=== PATIENT | female | born 1955 | race American Indian/Alaskan Native ===

== ENCOUNTER 2017-09-23 04:58 | Emergency (ER) | payer OTHER ==
--- NOTE | 2017-09-23 09:51 | Emergency Department Report ---
Blank Doc - Documentation Documentation: 62-year-old male with past medical history subdural hematoma, recent subdural hematoma evacuation at [facility] in June and comes in complaining of headaches and seizures for 2 weeks. Patient complains of headache on and off for 2 weeks, 6/10, nonradiating denies numbness tingling. Blurry vision at times. Patient states she's not been taking any of his blood pressure medication or seizure medications because he doesn't have money to buy them. Patient denies any nausea vomiting chest pain shortness of breath. NIH score:0 P: 1. bloodwork, CT scan and pt to go to ER side and admission
[2017-09-23 10:09] LABS: Hematocrit 38.6 % (30.3-42.9); Hemoglobin 13.3 gm/dl (10.1-14.3); Mean Corpuscular HGB Conc 34 % (30-34); Mean Corpuscular Hemoglobin 34 pg (28-32); Mean Corpuscular Volume 97 fl (79-97); Platelet Count 154 K/mm3 (140-440); Red Blood Count 3.97 M/mm3 (3.65-5.03); Red Cell Distribution Width 12.4 % (13.2-15.2)
[2017-09-23 10:19] LABS: INR 0.87 (0.87-1.13)
[2017-09-23 10:20] LABS: Partial Thromboplastin Time 25.9 Sec. (24.2-36.6)
[2017-09-23 10:24] LABS: BUN/Creatinine Ratio 15; Blood Urea Nitrogen 15 mg/dL (7-17); Calcium 9.4 mg/dL (8.4-10.2)
[2017-09-23 10:25] LABS: Alanine Aminotransferase 5 units/L (7-56); Albumin 4.2 g/dL (3.9-5); Hemolysis Index 8
[2017-09-23 10:49] LABS: Erythrocyte Sedimentation Rate 2 mm/Hr (0-20)
[2017-09-23] MEDS ORDERED: ROXICODONE PO ONE (10:56)
--- NOTE | 2017-09-23 11:22 | Emergency Department Report ---
ED General Adult HPI - General Chief complaint: Headache Stated complaint: BRAIN SURGERY, HEAD HURTS Time Seen by Provider: 09/23/17 09:39 Source: patient Mode of arrival: Ambulatory Limitations: No Limitations - History of Present Illness Initial comments: Patient complains of chronic headache ( "head pain") which has been ongoing since June 2017 after he had a brain surgery. He said the "head pain" is only controlled by taking Oxycodone. He has run out of his oxycodone and he is looking for a refill of oxycodone. He also has a history of seizure which is controlled by taking Depakote and Gabapentin. Patient also stated he ran out of both his Depakote and Gabapentin and he is requesting a refill. He normally goes to [facility] for his medical care since he has no primary care provider. He said he does not have the transportation to go to [place] that is why he came to [facility] emergency room. Patient is demanding to have oxycodone for his head pain. He also said he has had blurry vision on and off for the past 3 months. -: Gradual, month(s) (4) Location: head Radiation: non-radiation Severity scale (0 -10): 5 Quality: aching Consistency: intermittent Improves with: medication (Oxycodone) Worsens with: none Associated Symptoms: denies other symptoms Treatments Prior to Arrival: none - Related Data Home Medications Medication Instructions Recorded Confirmed Last Taken Divalproex Sodium [Depakote] 500 mg PO BID 09/23/17 09/23/17 09/23/17 Ibuprofen 800 mg PO TID 09/23/17 09/23/17 Unknown Meloxicam 1 tab PO DAILY 09/23/17 09/23/17 Unknown amLODIPine [Norvasc] 10 mg PO DAILY 09/23/17 09/23/17 Unknown Previous Rx's Medication Instructions Recorded Last Taken Type Amlodipine Besylate [Norvasc] 10 mg PO DAILY #30 tablet 09/23/17 Unknown Rx Butalb/Acetaminophen/Caffeine 1 cap PO Q8HR PRN #20 cap 09/23/17 Unknown Rx [Fioricet 50-300-40 mg CAP] Divalproex Sodium [Depakote] 500 mg PO BID #60 tablet. 09/23/17 Unknown Rx Allergies Allergy/AdvReac Type Severity Reaction Status Date / Time No Known Allergies Allergy Unverified 09/23/17 05:14 ED Review of Systems ROS: Stated complaint: BRAIN SURGERY, HEAD HURTS Other details as noted in HPI Comment: All other systems reviewed and negative Constitutional: denies: chills, fever Eyes: vision change. denies: eye pain, eye discharge ENT: denies: ear pain Respiratory: denies: cough, shortness of breath, SOB with exertion, SOB at rest Cardiovascular: denies: chest pain, palpitations, dyspnea on exertion Endocrine: no symptoms reported Gastrointestinal: denies: abdominal pain, nausea, vomiting, diarrhea Genitourinary: denies: urgency, frequency Musculoskeletal: denies: back pain, joint swelling, arthralgia Skin: denies: rash, change in color Neurological: headache. denies: weakness, numbness, paresthesias, confusion, abnormal gait, vertigo Psychiatric: denies: anxiety, depression Hematological/Lymphatic: denies: easy bleeding, easy bruising ED Past Medical Hx - Past Medical History Previous Medical History?: Yes Hx Hypertension: Yes - Surgical History Past Surgical History?: Yes Additional Surgical History: brain sx 06/2017, "for clot in my brain" - Social History Smoking Status: Current Every Day Smoker Substance Use Type: Alcohol - Medications Home Medications: Home Medications Medication Instructions Recorded Confirmed Last Taken Type Amlodipine Besylate [Norvasc] 10 mg PO DAILY #30 tablet 09/23/17 Unknown Rx Butalb/Acetaminophen/Caffeine 1 cap PO Q8HR PRN #20 cap 09/23/17 Unknown Rx [Fioricet 50-300-40 mg CAP] Divalproex Sodium [Depakote] 500 mg PO BID 09/23/17 09/23/17 09/23/17 History Divalproex Sodium [Depakote] 500 mg PO BID #60 tablet. 09/23/17 Unknown Rx Ibuprofen 800 mg PO TID 09/23/17 09/23/17 Unknown History Meloxicam 1 tab PO DAILY 09/23/17 09/23/17 Unknown History amLODIPine [Norvasc] 10 mg PO DAILY 09/23/17 09/23/17 Unknown History ED Physical Exam - General Limitations: No Limitations General appearance: alert, in no apparent distress - Head Head exam: Present: atraumatic, normocephalic, normal inspection - Eye Eye exam: Present: normal appearance, PERRL, EOMI, other (Visual Acuity: R=20/70 , L=20/70, Both eyes=20/70.) Pupils: Present: normal accommodation - ENT ENT exam: Present: normal orophraynx, mucous membranes moist - Neck Neck exam: Present: normal inspection. Absent: tenderness, full ROM - Respiratory Respiratory exam: Present: normal lung sounds bilaterally. Absent: wheezes - Cardiovascular Cardiovascular Exam: Present: regular rate, normal heart sounds - GI/Abdominal GI/Abdominal exam: Present: soft, distended, normal bowel sounds. Absent: tenderness, guarding - Extremities Exam Extremities exam: Present: normal inspection, full ROM, normal capillary refill - Back Exam Back exam: Present: normal inspection, full ROM - Neurological Exam Neurological exam: Present: alert, oriented X3, CN II-XII intact. Absent: motor sensory deficit - Psychiatric Psychiatric exam: Present: normal affect - Skin Skin exam: Present: warm, dry, intact, normal color. Absent: rash ED Course Vital Signs 09/23/17 09/23/17 09/23/17 05:14 11:09 12:30 Temperature 98.7 F 98.1 F Pulse Rate 88 82 Respiratory 18 20 16 Rate Blood Pressure 144/99 Blood Pressure 173/104 [Right] O2 Sat by Pulse 100 100 Oximetry 09/23/17 14:13 Temperature 97.8 F Pulse Rate 83 Respiratory 18 Rate Blood Pressure Blood Pressure 146/105 [Right] O2 Sat by Pulse 100 Oximetry - Reevaluation(s) Reevaluation #1: 09/23/17 13:35 On reevaluation patient said his headache has resolved and he wants to go home. I will go ahead and discharge him home with neurology follow up. ED Medical Decision Making - Lab Data Result diagrams: 09/23/17 09:55 09/23/17 09:55 - Radiology Data Radiology results: report reviewed, image reviewed The radiologist field service consultant Dr. Marrufo called me and give me a full report of the patient has CT scan without contrast. He said the head CT showed chronic left basal ganglia lacunar infarct. No acute intracranial findings. - Medical Decision Making Chronic headache. History of seizure disorder. Critical care attestation.: If time is entered above; I have spent that time in minutes in the direct care of this critically ill patient, excluding procedure time. ED Disposition Clinical Impression: Seizure disorder Chronic headaches Qualifiers: Headache type: unspecified Intractability: not intractable Qualified Code(s): R51 - Headache Migraine headache Qualifiers: Migraine type: unspecified Status migrainosus presence: without status migrainosus Intractability: not intractable Qualified Code(s): G43.909 - Migraine, unspecified, not intractable, without status migrainosus Disposition: TO HOME OR SELFCARE Is pt being admited?: No Does the pt Need Aspirin: No Condition: Stable Instructions: Migraine Headache (ED), Recurrent Seizures Adult (ED) Additional Instructions: Please follow up with the neurologist Dr Her. Return to the emergency room if her condition worsens. Prescriptions: Amlodipine Besylate [Norvasc] 10 mg PO DAILY #30 tablet Butalb/Acetaminophen/Caffeine [Fioricet 50-300-40 mg CAP] 1 cap PO Q8HR PRN #20 cap PRN Reason: Headache Divalproex Sodium [Depakote] 500 mg PO BID #60 tablet. Referrals: PRIMARY CAREMD [Primary Care Provider] - 3-5 Days DAWSON HER MD [Staff Physician] - 3-5 Days Time of Disposition: 13:39
[2017-09-23 12:03] LABS: Platelet Estimate Consistent w Auto; RBC Morphology Normal; Total Cells Counted 100
[2017-09-23] MEDS ORDERED: NEURONTIN PO ONE (12:06)
[2017-09-23 14:15] VITALS: BP 146/105
--- NOTE | 2017-09-27 12:56 | Cat Scan Report ---
CT HEAD WITHOUT CONTRAST: HISTORY: Headache. TECHNIQUE: Sequential 2.5mm CT images. COMPARISON: none. FINDINGS: Cerebral Parenchyma: Minimal chronic periventricular white matter changes are identified. Chronic 1 cm infarct in the left anterior basal ganglia. The remaining brain parenchyma is within normal limits. Cerebellum: Within normal limits. Brainstem: Within normal limits. Ventricles: Normal. Sella: Normal. Extra-axial spaces: Normal. Basal Cisterns: Normal. Intracranial Hemorrhage: None. Midline Shift: None. Calvarium: Left craniotomy changes are identified. Sinuses: Normal. Mastoid Air Cells: Normal. Visualized Orbits: Normal. IMPRESSION: No acute intracranial process identified. Previous left frontal craniotomy changes. Chronic 1 cm infarct in the anterior left basal ganglia.
== END 2017-09-23 14:16 | disposition home or self-care (01) ==
LOC: ED 04:58
DX: G40.909 Epilepsy, unspecified, not intractable, without status epilepticus (principal); G43.909 Migraine, unspecified, not intractable, without status migrainosus; I63.8 Other cerebral infarction; I10 Essential (primary) hypertension; F17.200 Nicotine dependence, unspecified, uncomplicated
CPT/HCPCS: 36415; 70450; 80053; 80164; 84484; 85007; 85025; 85610; 85652; 85730; 99284; G0480; 80320